=== PATIENT | male | born 1950 | race Hispanic/Latino ===

== ENCOUNTER → 2024-06-18 | Outpatient (CLI) | payer OTHER ==
[2024-06-18] MEDS: REGADENOSON 0.4 MG/5 ML PF SYG IVP SCH (14:06)
--- NOTE | 2024-06-18 17:00 | HMCSR ---
APPROVED REPORT Height: 5 ft 8in Weight: 210 lbs TEST INDICATIONS CAD The imaging protocol used to acquire images was Rest Tc-99m/stress Tc-99m 1 day Consent: The procedure was explained and understood by the patient. Informerd consent was witnessed Fito Sylvester RN First, low dose rest was performed then high dose stress. RESTING DATA: The resting ekg shows: NSR Rest SPECT myocardial perfusion imaging was performed in supine position minutes following the intra venous injection of 11.3 mCi of Tc-99 Sestamibi. Time of rest injection: 10:13: Date: 06/18/2024 PHARMACOLOGIC STRESS: Pharmacologic stress test was performed by injecting regadenoson 0.4 mg IV push followed by the intra venous injection of 28.8 mCi of Tc-99 Sestamibi. Time of stress injection: 12:25: Date: 06/18/2024 Heart Rate at time of stress injection: 64 bpm. The images were gated to evaluate regional wall motion and calculate left ventricular ejection fracti on. STRESS DETAILS Reason for Termination: Infusion complete Stress Symptoms: No chest pain or symptoms Max HR Achieved: 82 bpm % of APMHR Achieved: 66 Max Blood Pressure: 138/64 mmHg Stress ECG: NSR Conclusion No ischemia Lateral wall infarct LV ejection fraction 51% Normal LV wall motion Normal LV size at rest and stress No increased lung uptake
== END | disposition home or self-care (01) ==
LOC: RAH 08:59
PROVIDERS: ATTEND Internal Medicine
DX: I25.10 Atherosclerotic heart disease of native coronary artery without angina pectoris (principal)
CPT/HCPCS: 78452; 93017; J2785; A9500 ×2